=== PATIENT | male | born 1945 | race Caucasian/White ===

== ENCOUNTER 2024-12-14 13:24 | Outpatient (CLI) | payer OTHER, SELFPAY ==
--- OUTSIDE RECORDS SUMMARY | 2024-12-15 00:52 | XMS_ITS | Data Portability ---
Author Organization [place] [facility] [place] [facility], [facility] Address [address] [place] [address] Assessment No assessment recorded. Plan of Treatment Reminders Order Date Submit Date Provider Last Modified By Organization Details Last Modified Time Details Appointments None recorded. Lab urinalysis , dipstick 2020 021 [email or web address] [facility], [address], [place], [address], Ph 11:46:47 Referral None recorded. Procedures None recorded. Surgeries None recorded. Imaging None recorded. Medication Orders None recorded. Patient TargetsNo targets recorded. Patient Instructions Encounter Date Encounter Id Patient Instructions Last Modified By Organization Details Last Modified Time 09/12/2020 [id number] Juan Jose Rodriguez is a 75-year-old male who was referred to me for further evaluation and management of pain at the tip of his penis with urination. Patient has reportedly been seen by a urologist at the [facility] previously. PSA history: January 2020--7.24 January 2019--7.28 July 2018--7.28 December 2017--6.23 January 2017--7.24 May 2016--5.28 January 2016--6.22 December 2014--5.December-nine 5.29 December 2012--5.June--5.9 Urinalysis from September 08, 2020 not consistent with infection. Was notable for a urine pH of 5.0 and trace occult blood. 0-2 red blood cells per high-power field and 3-5 white blood cells per high-power field. Patient underwent MRI of the prostate on February 09, 2020. This was notable for a PI-RADS 4 lesion of the posterior lateral right peripheral zone. Outside records were carefully reviewed. A total of 70 pages of records were reviewed. Notes from primary care indicated that patient was on active surveillance for prostate cancer. 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 Repeat biopsy was performed in 2009 and demonstrated Pierson 3+3 and less than 5% of the tissue on the right with evidence of BPH and the remaining tissue. MRI showed a prostate volume of 101 cc with a PSA density of 0.06. He was advised to undergo repeat MRI fusion biopsy in June of this year but it is unclear if this was performed. Long discussion with patient regarding the pathophysiology of penile pain. I discussed the broad differential diagnoses that could cause the symptom. It is highly likely that the most probable cause of his symptoms was an increased intake of bladder irritants. The increased intake of acidic foods and caffeine immediately proceeded the onset of his symptoms and his symptoms resolved after stopping the bladder irritants. I recommend that he increase his water intake and try to avoid bladder irritants especially when symptoms are worse. He will continue to follow-up with the [facility] regarding management of his prostate cancer. However he is interested in having a local urologist in the event of more acute needs. I advised him to follow-up as needed. Plan: - Increase water intake - Avoid bladder irritants - Follow up as needed going forward 60 minutes, > 50% counseling albin Not available 09/12/2020 17:30:37 Reason for Referral None Reported. Results Created Date Observation Date Name Description Value Unit Range Abnormal Flag Note LastModifiedBy Organization Detail LastModifiedTime 09/13/19 21 09/12/2020 urina lysis , dipst ick pH-Status 5.5 Not Available [facility] [address], [place], [address], Ph 09/12/2020 11:46:30 09/10/1902/09/2020 MRI, prost ate, w/wo contr ast No observ ation record ed. [email or web address] Not Available 08/22 08:52:49 Result Notes None recorded. Problems Name Problem SNOMED Code Status Onset Date Resolution Date Notes Provider Name and Address Organization Details Recorded Time Dysuria 76814980 Active 021 Luis Alberto Rizo MD [address] [place] [address], [phone], [facility] 13:25:03 Malignant neoplasm of prostate 964148796 Active 021 Luis Alberto Rizo MD [address] [place] [address], [phone], [facility] 1 13:25:04 Problem Notes None recorded. Procedures Surgical History Date Name Laterality Status Provider Name and Address Organization Details Recorded Time 7 colonoscopy completed Destinee Mcdowell [facility] 09/12/2020 11:44:26 Imaging Results None recorded. Procedure Notes None recorded. Medical Equipment None Reported. Allergies Allergen ID Allergen Name Allergen Category Reaction Reaction Severity Criticality Documentation Date Start Date Code Code System Note Provider Name and Address Organization Details Recorded Time 402950 blueberry extract food edema Not available Not available 09/09/2020 96792 29 [facility] 12:[facility] Medications Name Sig Start Date Stop Date Status Note LastModified by Organization Details LastModified Time simvastatin 40 mg tablet Take 1 tablet every day by oral route. active Not Available Not Available No t Available Vitals Date Recorded Body height Body mass index (BMI) Body weight Heart rate Provider Name and Address Organization Details Last Updated DateTime 09/12/2020 175.26 cm 22.4 kg/m2 76499.04 g 60 /min Destinee Mcdowell [facility] 09/12/2020 11:45:00 Social History Question Answer Notes LastModified by Organizat ion Details LastModified Time Tobacco Smoking Status Former Smoker Quit 55 years ago; quit 1969 Destinee escudero [facility] 09/12/2020 11:44:15 What Was The Date Of Your Most Recent Tobacco Screening? 09/12/2020 [email or web address] Information not available 09/12/2020 Sex: Unknown Functional Status None recorded. Mental Status None recorded. Family History Nothing Reported. Medical History No medical history recorded. Past Encounters Encounter ID Performer Location Encounter Start Date Encounter Closed Date Diagnosis/Indication Diagnosis SNOMED-CT Code Diagnosis ICD10 Code Diagnosis Note [id number] Luis Alberto Rizo MD [facility] [address] [place] [address] 09/12/2020 11:33:59 09/14/2020 14:46:47 Malignant neoplasm of prostate 287281507 C61 Dysuria 29433874 R30.9 Health Concerns Section Related Observation LastModified by Organization Detai ls LastModified Time None Recorded Concern Status LastModified by Organization Details LastModified Time None Recorded Advance Directives Directive None Recorded Payers Insurance Date Sequence Insurance Name Policy Number Policy Howard Covered Member ID Howard Member ID Guarantor Name 09/15/2020 1 [employer] - [employer] (EPO) [id number] Juan Jose Rodriguez [id number] Juan Jose Rodriguez 09/15/2020 1 [employer] (PPO) [id number] Juan Jose Rodriguez [id number] Juan Jose Rodriguez Notes Date Note Type Note Provider Name and Address Organization Details Recorded Time 09/12/2020 text/html Juan Jose Rodriguez is a 75-year-old male who was referred to me for further evaluation and management of pain at the tip of his penis with urination. Patient has reportedly been seen by a urologist at the [facility] previously.PSA history:January 2020--7.3Augu2018--7.4February 2018--7.7July 2017--6.2August 2016--7.1December 2015--5.6August 2016--6.1July 2014--5.0July 2014-nine 5.8July 2012--5.0January 2012--5.9Urinalysi s from September 08, 2020 not consistent with infection. Was notable for a urine pH of 5.0 and trace occult blood. 0-2 red blood cells per high-power field and 3-5 white blood cells per high-power field.Patient underwent MRI of the prostate on February 09, 2020. This was notable for a PI-RADS 4 lesion of the posterior lateral right peripheral zone.Outside records were carefully reviewed. A total of 70 pages of records were reviewed. Notes from primary care indicated that patient was on active surveillance for prostate cancer. He was initially diagnosed with prostate cancer in 2007 1 biopsy revealed Pierson 3+3 adenocarcinoma. Repeat biopsy was performed in 2009 and demonstrated Pierson 3+3 and less than 5% of the tissue on the right with evidence of BPH and the remaining tissue. MRI showed a prostate volume of 101 cc with a PSA density of 0.06. He was advised to undergo repeat MRI fusion biopsy in June of this year but it is unclear if this was performed.Patient never had the repeat fusion biopsy done. He reports he is still seeing the [facility] urology team.He stated he had a very sharp pain with urination last week. This lasted for a few days. He had a negative UA at urgent care. He had been drinking an increased amount of caffeine lately. Pain started after increased intake of coffee and acidic food. He stopped the coffee and acidic foods and increased water intake and his symptoms improved.Never had this symptom before. Pain was also associated with constipation. Denied other difficulty with urination. No history of stones. Luis Alberto Rizo MD [address], [place], [address], [facility] 09/12/2020 17:30:53
== END 2024-12-14 13:25 | disposition home or self-care (01) ==
LOC: MRI 13:30
PROVIDERS: PCP Nurse Practitioner; Visit Provider Nurse Practitioner
DX: C61 Malignant neoplasm of prostate (principal)
CPT/HCPCS: 72195

== ENCOUNTER 2025-06-04 15:03 | Outpatient (CLI) | payer OTHER, SELFPAY | END 2025-06-04 15:04 | disposition home or self-care (01) | LOC: MRI 15:03 | PROVIDERS: Visit Provider Internal Medicine | DX: C61 Malignant neoplasm of prostate (principal) | CPT/HCPCS: 72195 ==